=== PATIENT | female | born 1995 | race Caucasian/White ===

== ENCOUNTER 2022-05-04 10:51 | Observation (INO) ==
[2022-05-04 12:04] LABS: Bilirubin,Urine Negative (Negative); Blood, Urine Trace mg/dL (Negative); Glucose,Urine (UA) Negative (Negative); Ketones,Urine Negative (Negative); Nitrite,Urine Negative (Negative); Protein,Urine Negative (Negative); Urine Appearance Clear (Clear); Urine Color Yellow (Yellow); Urine Specific Gravity 1.025 (1.001-1.035); Urine Urobilinogen 0.2 eU/dL (<2.0)
[2022-05-04 12:05] LABS: Bacteria,Urine Few /HPF (Few); RBC,Urine Rare /HPF (0-4); Squamous Epithelial Cell,Urine Rare /HPF (0-10)
[2022-05-04 12:52] LABS: Basophils % 0.3 % (0.0-0.8); Eosinophils % 0.1 % (0.00-10.9); Hematocrit 43.6 VOL% (35.7-47.0); Hemoglobin 14.6 GM/DL (12.0-16.0); Immature Granulocytes % 0.5 %; Immature Granulocytes Absolute 0.06 #; Lymphocytes # 1.9 10*3/uL (1.4-4.0); Lymphocytes % 15.8 % (21.3-54.2); Mean Corpuscular HGB Conc 33.5 GM/DL (32-36); Mean Corpuscular Volume 84.8 FL (87-102); Mean Platelet Volume 10.5 FL (9.6-12.0); Monocytes # 0.6 10*3/uL (0.11-0.8); Monocytes % 5.2 % (1.7-12.7); Neutrophils % 78.1 % (38.7-73.9); Platelet Count 315 T/CUMM (130-400); Red Blood Count 5.14 MC/CUMM (3.8-5.5); Red Cell Distribution Width 12.4 % (9.3-17.3); White Blood Count 12.3 T/CUMM (4-12)
[2022-05-04 13:21] LABS: Albumin 4.1 G/DL (3.4-5.0); Bilirubin,Total 0.4 MG/DL (0.20-1.00); Calcium 9.5 MG/DL (8.5-10.1); Osmolality,Calculated 271.8 MOS/KG (273-304); Potassium 3.9 MMOL/L (3.5-5.1)
[2022-05-04] MEDS ORDERED: MORPHINE 10 MG/1 ML VIAL IV STA (13:49)
[2022-05-04] MEDS ORDERED: ONDANSETRON 4 MG/2 ML VIAL IV STA (13:49)
[2022-05-04] MEDS ORDERED: SODIUM CHLORIDE 0.9% 1,000 ML IV STA (13:50)
[2022-05-04] MEDS ORDERED: MORPHINE 2 MG/1 ML SYRINGE IV STA (13:51)
[2022-05-04] MEDS ORDERED: hydrALAZINE 20 MG/1 ML VIAL IV STA (14:23)
[2022-05-04] MEDS ORDERED: INDOCYANINE GREEN 25 MG VIAL IV ONE (14:41)
[2022-05-04] MEDS ORDERED: fentaNYL 100 MCG/2 ML VIAL ONE (15:01)
[2022-05-04] MEDS ORDERED: MIDAZOLAM 2 MG/2 ML VIAL ONE (15:01)
[2022-05-04] MEDS ORDERED: TISSUE ADHESIVE 1 EACH APPLICATOR TOP ONE (15:31)
[2022-05-04] MEDS ORDERED: BUPIVACAINE MPF 0.25% 10 ML VIAL ONE (15:31)
[2022-05-04] MEDS ORDERED: LIDOCAINE 1%/EPI INJ 20 ML VIAL ONE (15:31)
[2022-05-04] MEDS ORDERED: SCOPOLAMINE 1.5 MG PATCH TRANSDERM ONE (15:42)
[2022-05-04] MEDS ORDERED: propofoL 200 MG/20 ML VIAL IV ONE (15:50)
[2022-05-04] MEDS ORDERED: ROCURONIUM 50 MG/5 ML VIAL IV ONE (15:50)
[2022-05-04] MEDS ORDERED: LIDOCAINE 2% 5 ML VIAL ONE (15:50)
[2022-05-04] MEDS ORDERED: SUCCINYLCHOLINE 200 MG/10 ML VIAL ONE (15:50)
[2022-05-04] MEDS ORDERED: LACTATED RINGERS 1,000 ML IV ONE (16:33)
[2022-05-04] MEDS ORDERED: SUGAMMADEX 200 MG/2 ML VIAL IV ONE (16:38)
[2022-05-04] MEDS ORDERED: DEXAMETHASONE 4 MG/1 ML VIAL ONE (16:39)
[2022-05-04] MEDS ORDERED: ONDANSETRON 4 MG/2 ML VIAL ONE (16:39)
[2022-05-04] MEDS ORDERED: HYDROmorphone 1 MG/1 ML SYRINGE ONE ×2 (16:41→17:06)
[2022-05-04] MEDS ORDERED: SEVOFLURANE 1 UNIT/15 MINUTE INH ONE (16:46)
[2022-05-04] MEDS: HYDROmorphone 1 MG/1 ML SYRINGE IV PRN ×3 (17:05→20:47)
[2022-05-04] MEDS ORDERED: ACETAMINOPHEN INJ 1,000 MG/100 ML VIAL IV ONE ×2 (17:12→17:21)
[2022-05-04] MEDS ORDERED: KETOROLAC 30 MG/1 ML VIAL ONE (17:12)
[2022-05-04] MEDS ORDERED: ONDANSETRON 4 MG/2 ML VIAL IV PRN ×3 (17:16→19:38)
[2022-05-04] MEDS ORDERED: MEPERIDINE 25 MG/1 ML VIAL IV PRN (17:16)
[2022-05-04] MEDS ORDERED: HYDROmorphone 1 MG/1 ML SYRINGE IV PRN (17:16)
[2022-05-04] MEDS ORDERED: MEPERIDINE 50 MG/1 ML VIAL ONE (17:17)
[2022-05-04] MEDS ORDERED: KETOROLAC 30 MG/1 ML VIAL IV STA (17:20)
[2022-05-04] MEDS: LACTATED RINGERS 1,000 ML IV SCH (18:20)
[2022-05-05] MEDS: LACTATED RINGERS 1,000 ML IV SCH (02:41)
[2022-05-05 08:15] VITALS: BP 152/86
[2022-05-05] MEDS ORDERED: [UNRECOGNIZED DRUG - OTHER] PO SCH (09:00)
[2022-05-05] MEDS ORDERED: DESOGESTREL PO SCH (09:00)
[2022-05-05] MEDS ORDERED: ENOXAPARIN 40 MG/0.4 ML SYRINGE SUBCUT SCH (09:00)
[2022-05-05] MEDS ORDERED: LOSARTAN 50 MG TABLET PO SCH (09:00)
[2022-05-05] MEDS ORDERED: ETHINYL ESTRADIOL PO SCH (09:00)
[2022-05-05] MEDS: HYDROmorphone 1 MG/1 ML SYRINGE IV PRN (09:26)
== END 2022-05-05 10:23 | disposition home or self-care (01) ==
LOC: N.ED 10:51 → N.EDINP 10:51 → N.3E 18:29
PROVIDERS: ADMIT Surgery; ATTEND Surgery